=== PATIENT | male | born 1995 ===

== ENCOUNTER 2021-03-18 17:02 | Outpatient (REF) | payer MEDICAID, SELFPAY ==
--- NOTE | ~2021-03-18 | XR_ITS ---
EXAMINATION: XR RIBS, RIGHT CLINICAL INFORMATION: Acute tenderness to palpation at the anterior costal angle over ribs 6 and 7 COMPARISON: None TECHNIQUE: 3 views of the right ribs were obtained. PA view of the chest. FINDINGS: Lungs are clear. No consolidation, pneumothorax, or pleural effusion. The cardiomediastinal silhouette and pulmonary vasculature are normal. Osseous structures are unremarkable. Ribs are intact. No fractures are identified. XR/XR ribs RT min 3V w CXR1V IMPRESSION: Unremarkable examination.
== END 2021-03-18 17:03 | disposition home or self-care (01) ==
LOC: HO.XRAY 17:02
PROVIDERS: Visit Provider Emergency Medicine
DX: M95.4 Acquired deformity of chest and rib (principal)
CPT/HCPCS: 71101

== ENCOUNTER 2021-06-28 08:51 | Outpatient (REF) | payer MEDICAID, SELFPAY | END 2021-06-28 08:52 | disposition home or self-care (01) | LOC: HO.HAP 08:51 | PROVIDERS: PCP Nurse Practitioner Family; Visit Provider Nurse Practitioner Family | DX: Z46.1 Encounter for fitting and adjustment of hearing aid (principal); H90.3 Sensorineural hearing loss, bilateral | CPT/HCPCS: 92592 ==

== ENCOUNTER 2021-11-26 16:03 | Outpatient (REF) | payer SELFPAY | END 2021-11-26 16:04 | disposition home or self-care (01) | LOC: HO.HAP 16:03 | PROVIDERS: Visit Provider Nurse Practitioner Family | DX: Z46.1 Encounter for fitting and adjustment of hearing aid (principal); H90.3 Sensorineural hearing loss, bilateral | CPT/HCPCS: V5266 ==

== ENCOUNTER 2022-03-30 12:06 | Outpatient (REF) | payer MEDICAID, SELFPAY ==
--- NOTE | ~2022-03-30 | XR_ITS ---
EXAMINATION: XR BILATERAL KNEE CLINICAL INFORMATION: Pain. COMPARISON: None TECHNIQUE: 4 views each knee. FINDINGS: RIGHT KNEE: The tricompartment joint space is normal. There is no visible acute fracture or dislocation. No bony erosive changes. No abnormal joint effusion seen. The soft tissues are normal. LEFT KNEE: The tricompartment joint space is normal. No bony erosive changes. No loose bodies. The soft tissues are normal. XR/XR knee RT 4V IMPRESSION: Unremarkable bilateral knee exam.
--- NOTE | ~2022-03-30 | XR_ITS ---
EXAMINATION: XR BILATERAL KNEE CLINICAL INFORMATION: Pain. COMPARISON: None TECHNIQUE: 4 views each knee. FINDINGS: RIGHT KNEE: The tricompartment joint space is normal. There is no visible acute fracture or dislocation. No bony erosive changes. No abnormal joint effusion seen. The soft tissues are normal. LEFT KNEE: The tricompartment joint space is normal. No bony erosive changes. No loose bodies. The soft tissues are normal. XR/XR knee LT 4V IMPRESSION: Unremarkable bilateral knee exam.
== END 2022-03-30 12:07 | disposition home or self-care (01) ==
LOC: HO.XRAY 12:06
PROVIDERS: Absent Provider Registered Nurse; PCP Registered Nurse; Visit Provider Emergency Medicine
DX: M25.561 Pain in right knee (principal); M25.562 Pain in left knee
CPT/HCPCS: 73564

== ENCOUNTER 2022-03-30 12:47 | Outpatient (REF) | payer MEDICAID, SELFPAY | END 2022-03-30 12:48 | disposition home or self-care (01) | LOC: HO.HAP 12:47 | PROVIDERS: Visit Provider Registered Nurse | DX: Z46.1 Encounter for fitting and adjustment of hearing aid (principal); H90.3 Sensorineural hearing loss, bilateral | CPT/HCPCS: V5266 ==

== ENCOUNTER 2022-06-29 08:18 | Outpatient (REF) | payer MEDICAID, SELFPAY ==
--- NOTE | 2022-06-28 15:28 | MHC.AU.FUL ---
Hearing Instrument Follow-Up Date of Visit: 06/28/22 Left Ear: Bench Jeweler: Phonak Cheryl Q Serial number worn off aid and information not in chart Repair Warranty: Type of Mold: Skeleton (ripped in tragus area) Type of Wax Guard: Dispensed By: [facility] Date of Fittin Follow-Up Summary: Patient walked in. He reported the left earhook broke and now the aid is feeding back constantly. Work sent him home because of the constant feedback. The patient had tried to tape the earhook, but still feeding back. Removed all the tape patient had placed on aid at earhook and around the tubing. Able to see a big crack in earhook. Replaced earhook and tubing, cleaned microphones and contacts. Aid is in very bad shape, but amplifying without feedback. Patient is not wearing the right aid (likely a loaner provided 06/28/2021) Recommendations (Other): Advised patient to contact PCP to fax hearing test order to start process for new hearing aids. Diagnosis Code(s):Primary Diagnosis: H90.3 Bilateral Sensorineural Hearing Loss Services Performed:MAHMOOD Maintenance, Minor Repair (Quantity): 2 Signature: Provider: Alexandro Gallagher, [facility]
== END 2022-06-29 08:19 | disposition home or self-care (01) ==
LOC: HO.HAP 08:18
PROVIDERS: Visit Provider Registered Nurse
DX: Z46.1 Encounter for fitting and adjustment of hearing aid (principal); H90.3 Sensorineural hearing loss, bilateral
CPT/HCPCS: 92593; 99499

== ENCOUNTER 2022-10-04 15:03 | Outpatient (REF) | payer MEDICAID, SELFPAY ==
--- NOTE | 2022-10-04 16:37 | MHC.AU.MED ---
Medical Clearance for Hearing Instrumentation Date: 10/04/22 Patient Name: Ancelmo Mathew Date of : 1995 Primary Care Provider: Referring Provider: Ten Collins NP We have seen your patient on 10/04/22 and have determined that they are a candidate for amplification (See accompanying report). Specifically, they would benefit from: Hearing aid use in both ears There is a statute that addresses Medical Evaluation Requirements prior to fitting a patient with a hearing aid. According to [place] statute 265 CMR:6.03(1), (a) General. Except as provided in 265 CMR 6.03(1)(b), a supervisor harvesting shall not sell a hearing aid unless the prospective user has presented to the supervisor harvesting a written statement signed by a licensed physician that states that the patient's hearing loss has been medically evaluated and the patient may be considered a candidate for a hearing aid. The medical evaluation must have taken place within the preceding six months. Please note: Due to the [place] Statute referenced above, we cannot accept a signature other than that of a licensed physician. BALLISTICS TESTER and PA signatures cannot be accepted. I am in agreement with the above recommendation. There is no medical contraindication for hearing instrumentation. Physician Signature Date Physician Name (Printed)
--- NOTE | 2022-10-04 16:59 | MHC.AU.HA1 ---
Hearing Aid Evaluation Date of Visit: 10/04/22 Historical Information: Description of Hearing: Updated audiogram from today reveals a severe to profound sensorineural hearing loss with very poor word recognition ability. See audiogram for report. Discussed cochlear implants, patient may be interested in a CI eval in a few years. Current personal amplification information, if applicable: Phonak Cheryl Q50 UP (black) for the left ear only. Right aid broken. Summary: Patient is here for a hearing aid evaluation for new hearing aids following an updated audiogram. Discussed limited benefit from amplification given poor word recognition ability. Discussed cochlear implants and the patient may be interested in a CI eval in a few years. For now he would like to continue wearing hearing aids. Ear mold impressions taken bilaterally without incident. Medical clearance form faxed to PCP with today's audiogram. Hearing aid and ear mold order pending PA approval once signed medical clearance is obtained. Once we receive the ear molds and hearing aids then the patient will be contacted for scheduling. The patient indicated understanding. Hearing Aid Prescription: Based on the individual?s shared listening needs, communication environments, dexterity, desire for connectivity, and personal preferences, the following prescription for amplification has been made: Right ear: Make, Model, Color: Phonak Cheryl P70 UP, black Battery Size: 675 Type of Earmold/Dome/CShell/SlimTip: Westone Half shell, pressure vent, otoblast disappear B Left ear: Left ear prescription to be same as Right Hearing Aid above: Make, Model, Color: Phonak Cheryl P70 UP, black Battery Size: 675 Type of Earmold/Dome/CShell/SlimTip: Westone Full shell, pressure vent, otoblast disappear B Plan of Care: Patient wishes to purchase hearing aids as prescribed Action Taken/Action Needed: Earmold Impressions Taken Prior authorization to be requested Medical Clearance to be requested from PCP/ENT Primary Diagnosis: H90.3 Bilateral Sensorineural Hearing Loss Signature: Provider: Marilin Davila, [facility]
== END 2022-10-04 15:04 | disposition home or self-care (01) ==
LOC: HO.SH 15:03
PROVIDERS: Visit Provider Registered Nurse
DX: Z01.118 Encounter for examination of ears and hearing with other abnormal findings (principal); Z46.1 Encounter for fitting and adjustment of hearing aid; H90.3 Sensorineural hearing loss, bilateral
CPT/HCPCS: 92557; 92591; V5275

== ENCOUNTER 2022-11-21 08:07 | Outpatient (REF) | payer MEDICAID, SELFPAY ==
--- NOTE | 2022-11-21 10:13 | MHC.AU.HA2 ---
Hearing Instrument Fitting- Adult- Binaural Date of Visit: 11/21/22 Hearing Instruments Dispensed: Right Ear: Make, Model, Color, Serial Number: Lashell Luna P70 UP, black Serial #[id number] Machine Leather Trimmer Repair Warranty: 01/17/2026 Machine Leather Trimmer Loss and Damage Warranty: 01/17/2026 [facility] Service Plan: 11/21/2022 Battery Size: 675 Earmold/Dome/CShell/SlimTip: Westone Half shell, pressure vent, otoblast disappear B Left Ear: Make, Model, Color, Serial Number: Lashell Luna P70 UP, black Serial #[id number] Machine Leather Trimmer Repair Warranty: 01/17/2026 Machine Leather Trimmer Loss and Damage Warranty: 01/17/2026 [facility] Service Plan: 11/21/2022 Battery Size: 675 Earmold/Dome/CShell/SlimTip: Westone Full shell, pressure vent, otoblast disappear B Summary of Fitting: Feedback hvac manager run. Verifit performed and levels adjusted to better reach targets. Patient felt his own voice was not loud enough- increased overall gain by 3 steps and low frequency gain an additional 3 steps. Patient was pleased with the changes. Hearing aid care and maintenance were discussed. Hearing aids were paired to his phone. He was unable to download in the office, as his phone was not getting a good signal, even on the hospital wifi. He will try it again at home. Recommendations: Patient is an experienced hearing aid user. He will call for follow-up as needed. Diagnosis Code(s): Primary Diagnosis: H90.3 Bilateral Sensorineural Hearing Loss Signature: Provider: Alexandro Vazquez, [facility]
== END 2022-11-21 08:08 | disposition home or self-care (01) ==
LOC: HO.HAP 08:07
PROVIDERS: Visit Provider Registered Nurse
DX: Z46.1 Encounter for fitting and adjustment of hearing aid (principal); H90.3 Sensorineural hearing loss, bilateral
CPT/HCPCS: V5011; V5020; V5160; V5261; V5264; V5266

== ENCOUNTER 2023-01-07 12:14 | Emergency (ER) | payer MEDICAID, SELFPAY ==
--- NOTE | ~2023-01-07 | CT_ITS ---
EXAM: CT HEAD WITHOUT CONTRAST CT CERVICAL SPINE INDICATION: Reason for Exam neck pain. Head trauma. TECHNIQUE: A noncontrast CT scan was performed from the skull base to the vertex. A noncontrast CT scan of the cervical spine was performed from the base of the skull through T1 at 2.5 mm and 0.625 mm collimation. Coronal and sagittal reformats were obtained at the acquisition workstation. This CT examination was performed using dose optimization techniques as appropriate, variously including the following: * Automated exposure control * Adjustment of mA and/or kV according to patient size (this includes techniques or standardized protocols for targeted exams where dose is matched to indication/reason for exam; i.e. extremities or head) * Use of iterative reconstruction technique Dose length product is 1460 mGy-cm. COMPARISON: None FINDINGS: Head: There is no evidence of acute intracranial hemorrhage or territorial infarction. No abnormal mass effect or midline shift is seen. Pearce to white matter differentiation is well preserved. No extra-axial fluid collections are identified. The ventricles are normal in size. No abnormal attenuation in the brain parenchyma. No acute calvarial fracture.. Paranasal sinuses and mastoid air cells are well-aerated. Cervical Spine: The atlantooccipital and atlantoaxial articulations remain well aligned. There is anatomic alignment of the vertebral bodies and posterior elements. No evidence of acute fracture or subluxation. The vertebral bodies and posterior elements are normal. The disc spaces are preserved. The bony canal is well maintained.. No prevertebral soft tissue swelling. The paraspinal soft tissues are unremarkable. No suspicious thyroid findings. The visualized lung apices are clear. CT/CT cervical spine wo IV con IMPRESSION: 1. No CT evidence of acute intracranial hemorrhage or edematous territorial infarction.. 2. No CT evidence of acute cervical spine findings.
[2023-01-07 12:23] VITALS: BP 121/65; PULSE 55; RESP 20; TEMP 36.7; O2SAT 99; BMI 29.2
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
--- NOTE | 2023-01-07 13:29 | MHC.EDTECH ---
Head lac cleaned
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
[2023-01-07] MEDS: Diphth,Pertus(ACell),Tet Adult 0.5 ML SYRINGE IM (14:08)
[2023-01-07] MEDS: Acetaminophen 325 MG TABLET 975 MG PO (14:08)
[2023-01-07 15:33] VITALS: BP 127/84; PULSE 60; RESP 18; O2SAT 100
== END 2023-01-07 16:01 | disposition home or self-care (01) ==
PROVIDERS: Emergency Provider Emergency Medicine
DX: S06.0X0A Concussion without loss of consciousness, initial encounter (principal); S01.01XA Laceration without foreign body of scalp, initial encounter; W50.0XXA Accidental hit or strike by another person, initial encounter; Y93.71 Activity, boxing; Y92.39 Other specified sports and athletic area as the place of occurrence of the external cause; Y99.9 Unspecified external cause status
CPT/HCPCS: 12001; 70450; 72125; 90471; 90715; 99284

== ENCOUNTER 2023-06-28 09:48 | Outpatient (REF) | payer MEDICAID, SELFPAY | END 2023-06-28 09:49 | disposition home or self-care (01) | LOC: HO.HAP 09:48 | PROVIDERS: Visit Provider Registered Nurse | DX: Z13.89 Encounter for screening for other disorder (principal) | CPT/HCPCS: 92593; 99499 ==

== ENCOUNTER 2023-11-03 13:43 | Outpatient (REF) | payer SELFPAY | END 2023-11-03 13:44 | disposition home or self-care (01) | LOC: HO.HAP 13:43 | PROVIDERS: Visit Provider Registered Nurse | DX: Z46.1 Encounter for fitting and adjustment of hearing aid (principal); H90.3 Sensorineural hearing loss, bilateral | CPT/HCPCS: V5266 ==

== ENCOUNTER 2024-01-08 11:55 | Outpatient (REF) | payer SELFPAY | END 2024-01-08 11:56 | disposition home or self-care (01) | LOC: HO.HAP 11:55 | PROVIDERS: Visit Provider Nurse Practitioner Family | DX: Z46.1 Encounter for fitting and adjustment of hearing aid (principal); H90.3 Sensorineural hearing loss, bilateral | CPT/HCPCS: V5266 ==

== ENCOUNTER 2024-01-30 15:40 | Emergency (ER) | payer MEDICAID, SELFPAY ==
--- NOTE | 2024-01-30 16:03 | ED.GENADULT ---
HPI - General Adult General Chief complaint: Wound/Laceration Stated complaint: Head injury Time Seen by Provider: 01/30/24 16:12 Source: patient and RN notes reviewed Mode of arrival: ambulatory Limitations: no limitations History of Present Illness ED Provider: Hyacinth Medina PA-C HPI narrative: 28 year old male with no significant pmhx presents to the ED today requesting removal of sutures. Patient was seen at [facility] for mid forehead laceration 1.5 wks ago. He had 5 sutures placed (3 interrupted, 2 horizontal mattress). He was told to have these removed 5 days ago. He presents requesting removal. No complaints/ concerns at present. Denies fever, chills, headache, dizziness, vision changes, discharge or bleeding from the area. Related Data Allergies Allergy/AdvReac Type Severity Reaction Status Date / Time Shrimp (Diagnostic) Allergy Severe Anaphylaxis Uncoded 01/30/24 16:06 Review of Systems Review of Systems: Constitutional: No fever, chills, fatigue, night sweats, weight changes ENT/Mouth: No ear pain, hearing loss, nasal congestion, sinus pain, rhinorrhea, sore throat Eyes: No eye pain, swelling, redness, vision changes, discharge Cardio: No chest pain, palpitations, ALCARAZ, orthopnea, peripheral edema Pulm: No SOB, cough, sputum, wheezing, dyspnea, hemoptysis GI: No nausea, vomiting, hematemesis, abdominal pain, diarrhea, constipation, hematochezia, melena : No irregular bleeding, dysuria, frequency, urgency, hesitancy, hematuria, flank pain, urinary flow changes, urinary incontinence or retention MSK: No back pain, neck pain, joint pain, myalgias Skin: No lesions, rashes Neuro: No weakness, numbness, paresthesias, LOC, dizziness, headache Psych: No anxiety/panic, depression, SI/HI, AH/VH All other systems reviewed and are negative. [facility] Past Medical History Attestation statement: The following information was validated with the patient. Source: old records reviewed and nursing notes reviewed Social History Social History Alcohol intake: never Advance Directives: No Advance Directives Information Provided: No Physical Exam ED Vital Signs: Vital Signs - 24 hr 05/21/24 16:04 Temperature 97.9 F Pulse Rate 66 Respiratory Rate 16 Blood Pressure 95/80 Pulse Oximetry 97 Oxygen Delivery Method Room Air BMI result Body Mass Index 29.2 Vital signs stable Const General: cooperative, healthy appearing, comfortable and no acute distress Orientation/consciousness: patient oriented x3 Limitations: no limitations [facility] Head images: 1. 3 cm healing laceration noted to mid forehead between eyebrows. no active bleeding/ discharge. no overlying erythema or skin changes. Eyes General: appearance normal, both eyes and all related structures Pupils: Equal, round and reactive pupils present Neck Neck: Yes normal visual inspection, Yes full ROM and Yes no lymphadenopathy Resp Effort & Inspection: normal respiratory effort and able to speak in complete sentences Auscultation: clear to auscultation bilaterally Cardio Rate: regular rate Rhythm: regular rhythm Skin General skin exam: no rashes or lesions noted Neuro General: patient oriented x3 and gait normal Cranial nerves: Yes Equal, round and reactive pupils present Course Course Course Narrative: 1614-- 3 interrupted and 2 hosizontal mattress sutures removed successsfully. patient tolerated this well. Patient has remained stable throughout ED visit today. Discussed worrisome signs and symptoms and when to return to the ED. All questions answered at this time. Patient is agreeable with disposition and stable for discharge. Medical Decision Making Medical Decision Making MDM Narrative: 28 year old male with no significant pmhx presents to the ED today requesting removal of sutures. Vital signs stable. Afebrile. He is nontoxic-appearing and in no acute distress. On exam, there is a 3 cm healing laceration noted to mid forehead between eyebrows. no active bleeding/ discharge. no overlying erythema or skin changes. Skin W/D/I. No rashes or lesions. Differential diagnosis includes suture placement. Plan for suture removal. Differential Diagnosis Differential Diagnoses: The differential diagnosis associated with the presentation includes as above. Admission/Observation Consideration of admission/observation: Escalation of care including admission/observation considered Not indicated Prescription Management I considered prescription management with: Pain Medication Social Determinants Patient?s care significantly limited by Social Determinants of Health including: Other Social Determinant of Health Critical Care Time Critical Care Time Critical Care Time: No Discharge Plan Discharge Clinical Impression: Encounter for removal of sutures Patient Disposition: Home, Self-Care Instructions: Stitches Removal (ED) Additional Instructions: 5 sutures were removed from your forehead laceration today. Return if you develop fever, if the area begins to bleed and you cannot control it. Follow up with pcp as needed. Discharge Date/Time: 01/30/24 16:25 Print Language: Anguillan
[2024-01-30 16:04] VITALS: BP 95/80; PULSE 66; RESP 16; TEMP 36.6; O2SAT 97; BMI 29.2
== END 2024-01-30 16:25 | disposition home or self-care (01) ==
PROVIDERS: Emergency Provider Emergency Medicine Emergency Medical Services
DX: Z48.02 Encounter for removal of sutures (principal)
CPT/HCPCS: 99281

== ENCOUNTER 2024-03-25 15:46 | Outpatient (REF) | payer MEDICAID, SELFPAY ==
--- NOTE | 2024-03-26 10:52 | MHC.AU.HA3 ---
Hearing Instrument Follow-Up- Binaural Date of Visit: 03/25/24 Right Ear: Make, Model, Color, Serial Number: Lashell Luna P70 UP SN: [id number] Color: Black Flatwork Feeder Repair Warranty: 01/17/2026 Flatwork Feeder Loss and Damage Warranty: USED [facility] Service Plan: 11/22/2023 Battery Size: 675 Earmold/Dome/CShell/SlimTip:Three prong power dome that Ancelmo purchased from [employer] Dispensed By: [facility] Date of Fittin11/21/2022 Left Ear: Make, Model, Color, Serial Number: Lashell Luna P70 UP SN: [id number] Color: Black Flatwork Feeder Repair Warranty: 01/17/2026 Flatwork Feeder Loss and Damage Warranty: 01/17/2026 [facility] Service Plan: 11/22/2023 Battery Size: 675 Earmold/Dome/CShell/SlimTip: [employer]one Full shell, pressure vent, otoblast disappear B Dispensed By: [facility] Date of Fittin11/21/2022 Follow-Up Summary: Showed up at 15:45 for 14:00 apt. Able to accommodate. Old paper chart could not be located, created new one. Wearing left hearing aid on right ear with three prong power dome from [employer] reporting it sounds weak and junction between tubing and tone hook held together with tape. Tubing hard and discolored. Tone hook continually spinning on hearing aid and rust noted in battery door. Reportedly lost right hearing aid. Unclear where left ear mold is - could not obtain clear response. Hoping to use old right hearing aid in meantime. Cleaned left hearing aid and old right hearing aid. Replaced both tone hooks and tubing. Ran through dehumidifier. Listening check demonstrated hearing aids amplifying clearly. Ancelmo left wearing left hearing aid on left ear with dome from [employer]. Will reorder left ear mold. He recently ordered more domes from [employer] and will put one on tubing of old right hearing aid when they arrive. As previously noted, Ancelmo prefers to use the dome from [employer] in right ear due to cauliflower ear. Signed L&D form for right hearing aid. Recommendations: Patient will be contacted when materials have arrived. Diagnosis Code(s): Primary Diagnosis: H90.3 Bilateral Sensorineural Hearing Loss Signature: Provider: Alexandro Mayfield, [facility]
== END 2024-03-25 15:47 | disposition home or self-care (01) ==
LOC: HO.HAP 15:46
PROVIDERS: Visit Provider Registered Nurse
DX: Z46.1 Encounter for fitting and adjustment of hearing aid (principal); H90.3 Sensorineural hearing loss, bilateral
CPT/HCPCS: 92593; 99499

== ENCOUNTER 2024-03-28 13:04 | Outpatient (REF) | payer MEDICAID, SELFPAY | END 2024-03-28 13:05 | disposition home or self-care (01) | LOC: HO.HAP 13:04 | PROVIDERS: Visit Provider Registered Nurse | DX: Z46.1 Encounter for fitting and adjustment of hearing aid (principal) | CPT/HCPCS: 92592; 99499 ==

== ENCOUNTER 2024-04-19 15:32 | Outpatient (REF) | payer MEDICAID, SELFPAY | END 2024-04-19 15:33 | disposition home or self-care (01) | LOC: HO.HAP 15:32 | PROVIDERS: Visit Provider Registered Nurse | DX: Z46.1 Encounter for fitting and adjustment of hearing aid (principal); H90.3 Sensorineural hearing loss, bilateral | CPT/HCPCS: V5266 ==

== ENCOUNTER 2024-04-26 11:42 | Outpatient (REF) | payer MEDICAID, SELFPAY ==
--- NOTE | 2024-04-26 12:46 | MHC.AU.HA3 ---
Hearing Instrument Follow-Up- Binaural Date of Visit: 04/26/24 Right Ear: Make, Model, Color, Serial Number: Lashell Luna P70 UP SN: [id number] Color: Black Costume Designer Repair Warranty: 01/17/2026 Costume Designer Loss and Damage Warranty: USED [facility] Service Plan: 11/22/2023 Battery Size: 675 Earmold/Dome/CShell/SlimTip:[employer]one Otoblast Half Shell Dispensed By: [facility] Date of Fittin11/21/2022 Left Ear: Make, Model, Color, Serial Number: Lashell Luna P70 UP SN: [id number] Color: Black Costume Designer Repair Warranty: 01/17/2026 Costume Designer Loss and Damage Warranty: 01/17/2026 [facility] Service Plan: 11/22/2023 Battery Size: 675 Earmold/Dome/CShell/SlimTip: Westone Otoblast Full Shell Dispensed By: [facility] Date of Fittin11/21/2022 Follow-Up Summary: Fit right L&D replacement hearing aid and both new ear molds. Ancelmo reported he would prefer to use both ear molds again (versus the three prong power domes that he purchased from [employer]). Comfortable with no feedback in office. Recommendations: Hearing instrument follow-up or maintenance as needed. Please contact our clinic with any questions or concerns. Diagnosis Code(s): Primary Diagnosis: H90.3 Bilateral Sensorineural Hearing Loss Signature: Provider: Alexandro Mayfield, [facility]
== END 2024-04-26 11:43 | disposition home or self-care (01) ==
LOC: HO.HAP 11:42
PROVIDERS: Visit Provider Registered Nurse
DX: Z46.1 Encounter for fitting and adjustment of hearing aid (principal); H90.3 Sensorineural hearing loss, bilateral
CPT/HCPCS: V5264

== ENCOUNTER 2024-06-05 13:50 | Outpatient (AMB) | payer MEDICAID, SELFPAY ==
--- NOTE | 2024-06-05 14:28 | MHC.OFFVIS ---
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 Pt states he was in a grappling match on 05/04/24 and heard a pop in his knee. Pt states right after that he had pain in his knee. Pt states recently is is able to walk easier with less pain than before but states he has pain and difficulty walking up and down stairs. Pt states his ROM is limited and is having difficulty bending his leg. Pt has tried ice which has helped a little. 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 He reports he was in a grappling match when he heard a pop in knee and felt pain, swelling and limping with ambulation. He currently states he has improvement however he continues to have pain, limited ROM, and difficulty bending his knee. His pain is aggravated with going up and down the stairs. He has tried icing his knee with mild relief. [facility] Social History Alcohol intake: never Review of Systems Const All systems reviewed & are unremarkable except as noted in HPI and below Physical Exam Const General: cooperative, healthy appearing, comfortable, no acute distress, well developed and alert Orientation/consciousness: patient oriented x3 HEENT Head: Yes normal to inspection, Yes normocephalic and Yes atraumatic Eyes General: appearance normal, both eyes and all related structures Resp Effort & Inspection: normal respiratory effort and able to speak in complete sentences Cardio Rate: regular rate Peripheral pulses: Peripheral pulses 2+ throughout GI Palpation (GI): Soft to palpation Skin Lesions: no lesions Rashes: no rashes Neuro General: patient oriented x3 Extrem Other: Left knee: Skin intact, no erythema or joint effusion. Medial retropatellar tenderness present. Full ROM with crepitus. Negative Cindi?s. No ligamentous laxity. NVI. ? Results Reviewed Results Reviewed: xrays of the left knee obtained today are negative for acute fracture / dislocations. Assessment & Plan Assessment & Plan (1) Subluxation of left patella: Code(s): S83.002A - Unspecified subluxation of left patella, initial encounter Category: Medical Plan An MRI of the left knee was ordered to further evaluate the source of his pain and surrounding structures. I recommend no high impact activities until f/u in our office. Orders: Orders XR knee LT 3V Today M25.562 - Pain in left knee XR knee RT 1V Today M25.561 - Pain in right knee MR knee LT wo con Today S83.002A - Unspecified subluxation of left patella, initial encounter Patient Instructions: Scribed for Bartolo Mayberry PA-C, by Arnol Rodriguez nurses medical assistants phlebotomists, on 06/05/2024 at 2:00 PM EST.? I, Bartolo Mayberry PA-C, have personally reviewed and agree with the information entered by the scribe. Coding Level of Care Code New Pt Level 3 (92462) Complex EM visit Add On G2211 Diagnoses Subluxation of left patella S83.002A
== END 2024-06-05 15:10 | disposition home or self-care (01) ==
PROVIDERS: Visit Provider Physician Assistant
DX: S83.002A Unspecified subluxation of left patella, initial encounter (principal)
CPT/HCPCS: 99203

== ENCOUNTER 2024-06-05 13:50 | Outpatient (REF) | payer MEDICAID, SELFPAY ==
--- NOTE | ~2024-06-05 | XR_ITS ---
EXAMINATION: XR KNEE, LEFT CLINICAL INFORMATION: M25.562 - Pain in left knee COMPARISON: 03/30/2022. TECHNIQUE: Three views of the left knee. FINDINGS: Normal bony mineralization. No fracture, dislocation, or suspicious bone lesion. Normal alignment. Joint spaces in the medial lateral, and patellofemoral compartment appear preserved. Patella appears normally aligned. No soft tissue abnormalities. XR/XR knee LT 3V IMPRESSION: Normal left knee. Electronically signed by: Wolf Hernandez MD 08/13/2024 10:14 AM CARMEL
--- NOTE | ~2024-06-05 | XR_ITS ---
EXAMINATION: XR KNEE, RIGHT CLINICAL INFORMATION: M25.561 - Pain in right knee COMPARISON: 03/30/2022. TECHNIQUE: AP view of the right knee. FINDINGS: Normal bony mineralization. No fracture, dislocation, or suspicious bone lesion. Normal alignment. Joint spaces in the medial and lateral compartment appear preserved. Patella appears aligned. No soft tissue abnormalities. XR/XR knee RT 1V IMPRESSION: Normal right knee. Electronically signed by: Wolf Hernandez MD 08/13/2024 09:54 AM EST
== END 2024-06-05 13:51 | disposition home or self-care (01) ==
LOC: HO.XRAY 13:50
PROVIDERS: Visit Provider Physician Assistant
DX: M25.562 Pain in left knee (principal); M25.561 Pain in right knee; S83.002A Unspecified subluxation of left patella, initial encounter
CPT/HCPCS: 73560; 73562; 99212

== ENCOUNTER → 2024-06-05 14:03 | Outpatient (BNV) | payer MEDICAID, SELFPAY | PROVIDERS: Visit Provider Radiology Diagnostic Radiology | DX: M25.561 Pain in right knee (principal); M25.562 Pain in left knee | CPT/HCPCS: 73560; 73562 ==

== ENCOUNTER 2024-09-26 13:46 | Outpatient (REF) | payer SELFPAY | END 2024-09-26 13:47 | disposition home or self-care (01) | LOC: HO.HAP 13:46 | PROVIDERS: Visit Provider Registered Nurse | DX: Z46.1 Encounter for fitting and adjustment of hearing aid (principal); H90.3 Sensorineural hearing loss, bilateral | CPT/HCPCS: V5266 ==

== ENCOUNTER 2024-11-19 08:35 | Outpatient (REF) | payer SELFPAY ==
--- OUTSIDE RECORDS SUMMARY | 2024-11-19 09:17 | XMS_ITS | Clinical Summary ---
Author Organization [employer] Address [address] [facility] [address] [place] [address] Care Team Providers Care Flow Worker Name Role Phone Kim Bazzi KEMAR Primary Care Provider [phone] Allergies No known active allergies Medications Diclofenac Sodium 1 % gel Apply 2 g topically every 6 (six) hours. 2 Active fluticasone (Flonase) 50 MCG/ACT nasal spray 8 Active Glycerin-Hyprom ellose-PEG 400 (Artificial Tears) 0.2-0.2-1 % solution Administer 1 drop into affected eye(s) Every 4-6 hours as needed (eye dryness). 15 mL 3 Active ibuprofen 600 MG tabletIndicatio ns:Left knee injury, initial encounter Take 1 tablet (600 mg) by mouth every 6 (six) hours if needed for mild pain or moderate pain. 30 tablet 1 4 Active Active Problems Problem Noted Date Diagnosed Date Upper respiratory infection 04/13/2023 Assessment & Plan (04/13/2023 8:25 PM EDT): Pt w upper respiratory symptoms all improving except for noted today bl eye yellowish discharge Afebrile , VS wnl Exam noted erythema in throat w no exudates and bl eyes conjunctival injection with no current discharge Here w neg flu,covid test Likely viral infection -advised hydration -supportive tx w eye lubricants, tylenol prn -alarm signs and symptoms discussed -covid test sent to hospital for confirmation -advised mask use ,hand hygiene Social History Tobacco Use Types Packs/Day Years Used Date Smoking Tobacco: Never Smokeless Tobacco: Never Sex and Gender Information Value Date Recorded Sex Assigned at Male 07/11/2022 10:14 AM EDT Legal Sex Male 10:14 AM EDT Gender Identity Male 07/11/2022 10:14 AM EDT Sexual Orientation Straight 07/11/2022 10 :14 AM EDT Last Filed Vital Signs Vital Sign Reading Time Taken Comments Blood Pressure 119/71 05/06/2024 9:00 AM EDT Pulse 76 05/06/2024 9:00 AM EDT Temperature 36.6 ??C (97.8 ??F) 05/06/2024 9:00 AM ED T Respiratory Rate 20 05/06/2024 9:00 AM EDT Oxygen Saturation 97% 05/06/2024 9:00 AM EDT Inhaled Oxygen Concentration - - Weight 80.9 kg (178 lb 6.4 oz) 05/06/2024 9:00 A M EDT Height 167.6 cm (5' 6 ) 05/06/2024 9:00 AM EDT Body Mass Index 28.79 05/06/2024 9:00 AM EDT Plan of Treatment Health Maintenance Due Date Last Done Comments Depression Screening 1994 HIV Screening 1994 SDOH Screening 1994 Alcohol/Substance Use Screening 2006 Family Planning (PISQ) 2009 HPV Vaccines (2 - Male 3-dose series) 03/23/2011 02/23/2011 Hepatitis C Screening 2012 COVID-19 Vaccine ( - 2023- season) 2024 Influenza Vaccine (#1) 2024 Tobacco Screening 05/06/2025 05/06/2024 DTaP/Tdap/Td Vaccines (10 - Td or Tdap) 01/19/2034 01/20/2024, 01/07/2023, 02/21/2019, Additional history exists Zoster Vaccines (1 of 2) 2044 RSV Patients and Patients Aged 60 years or older (1 - 1-dose 75+ series) 2069 Hepatitis B Vaccines Completed 09/11/1995, 05/12/1995, 04/11/1995 HIB Vaccines Completed 07/12/1996, 09/1995, 05/12/1995, Additional history exists IPV Vaccines Completed 01/03/2000, 09/1995, 09/11/1995, Additional history exists Meningococcal Vaccine Aged Out 10/09/2006 No alicja beverly eligible based on patient's age to complete this topic Hepatitis A Vaccines Completed 06/05/2008, 10/09/19 07 Pneumococcal Vaccine: Pediatrics (0 to 5 Years) and At-Risk Patients (6 to 49) Years) Aged Out No longer eligible based on patient's age to complete this topic RSV under 20 months Aged Out No longe r eligible based on patient's age to complete this topic Rotavirus Vaccines Aged Out No longer eligible based on patient's age to complete this topic [facility] [facility] C[facility] Care Teams Flow Worker Relationship Specialty Start Date End Date Kim Bazzi NP [address] [place] [phone] PCP - General Family Medicine 10/20/23
--- NOTE | 2024-11-19 12:49 | MHC.AU.HA3 ---
Hearing Instrument Follow-Up- Binaural Date of Visit: 11/19/24 Right Ear: Roman, Model, Color, Serial Number: Lashell Luna P70 UP SN: [id number] Color: Black Health Information Assistant Repair Warranty: 01/17/2026 Health Information Assistant Loss and Damage Warranty: USED [facility] Service Plan: 11/22/2023 Battery Size: 675 Bacon Skin Lifter/Slim Tube: Earmold/Dome/CShell/SlimTip:[employer] Otoblast Half Shell Type of Wax Guard: Dispensed By: [facility] Date of Fittin11/21/2022 Left Ear: Roman, Model, Color, Serial Number: Lashell Luna P70 UP SN: [id number] Color: Black Health Information Assistant Repair Warranty: 01/17/2026 Health Information Assistant Loss and Damage Warranty: 01/17/2026 [facility] Service Plan: 11/22/2023 Battery Size: 675 Bacon Skin Lifter/Slim Tube: Earmold/Dome/CShell/SlimTip: [employer]one Otoblast Full Shell Type of Wax Guard: Dispensed By: [facility] Date of Fittin11/21/2022 Follow-Up Summary: Aids dropped off. Tubes hard and split, left tone hook taped to hearing aid. Cleaned aids and earmolds, replaced tone hooks, replaced tubing. Significant brown/red dust accumulated in battery compartments, cleaned as well as possible. Listening check positive. Recommendations: Recommendations: Hearing instrument follow-up or maintenance as needed. Diagnosis Code(s): Primary Diagnosis: H90.3 Bilateral Sensorineural Hearing LossSecondary Diagnosis: Signature: Provider: Alexandro White, [facility]
== END 2024-11-19 08:36 | disposition home or self-care (01) ==
LOC: HO.HAP 08:35
PROVIDERS: Visit Provider Registered Nurse
DX: Z46.1 Encounter for fitting and adjustment of hearing aid (principal); H90.3 Sensorineural hearing loss, bilateral
CPT/HCPCS: 92593

== ENCOUNTER 2024-12-10 15:27 | Outpatient (REF) | payer SELFPAY | END 2024-12-10 15:28 | disposition home or self-care (01) | LOC: HO.HAP 15:27 | PROVIDERS: Visit Provider Registered Nurse | DX: Z46.1 Encounter for fitting and adjustment of hearing aid (principal); H90.3 Sensorineural hearing loss, bilateral | CPT/HCPCS: V5266 ==

== ENCOUNTER 2025-01-22 09:24 | Outpatient (REF) | payer SELFPAY ==
--- OUTSIDE RECORDS SUMMARY | 2025-01-22 09:56 | XMS_ITS | Clinical Summary ---
Author Organization [employer] Address [address] [facility] [address] [place] [address] Care Team Providers Care Milling Supervisor Name Role Phone Kim Bazzi KEMAR Primary Care Provider Allergies No known active allergies Medications Diclofenac [...] patient's age to complete this topic [facility] Care Teams Milling Supervisor Relationship Specialty Start Date End Date Kim Bazzi NP [address] [place] [phone] PCP - General Family Medicine 10/20/23
== END 2025-01-22 09:25 | disposition home or self-care (01) ==
LOC: HO.SH 09:24
DX: Z01.118 Encounter for examination of ears and hearing with other abnormal findings (principal); Z46.1 Encounter for fitting and adjustment of hearing aid; H90.3 Sensorineural hearing loss, bilateral
CPT/HCPCS: V5266

== ENCOUNTER 2025-03-28 12:52 | Outpatient (REF) | payer SELFPAY ==
--- OUTSIDE RECORDS SUMMARY | 2025-03-28 12:55 | XMS_ITS | Clinical Summary ---
Author Organization [employer] Address [address] [place] [address] [address] [place] [address] Care Team Providers Care Throw Out Clerk Name Role Phone Kim Bazzi KEMAR Primary Care Provider [phone] Allergies No known active allergies Medications Diclofenac [...] 76 05/06/2024 9:00 AM EDT Temperature 36.6 C (97.8 F) 05/06/2024 9:00 AM EDT Respiratory Rate 20 05/06/2024 9:00 AM EDT [...] 1994 HIV Screening 1994 SDOH Screening 1994 Disability Screening 1994 Alcohol/Substance Use Screening 2006 Family Planning (PISQ) 2009 HPV Vaccines (2 - Male 3-dose series) 03/23/2011 02/23/2011 Hepatitis C Screening 2012 COVID-19 Vaccine ( - season) 2024 Tobacco Screening 05/06/2025 05/06/2024 Influenza Vaccine (#1) 2025 DTaP/Tdap/Td Vaccines (10 - Td or Tdap) [...] Hepatitis A Vaccines Completed 06/05/2008, 10/09/19 07 Meningococcal B Vaccine Aged Out No l onger eligible based on patient's age to complete this topic Pneumococcal Vaccine: Pediatrics (0 to 5 Years) and At-Risk Patients (6 to 49) Years Aged Out No longer eligible based on patient's age to complete this topic RSV under 20 months Aged Out No longe r eligible based on patient's age to complete this topic Rotavirus Vaccines Aged Out No longer eligible based on patient's age to complete this topic Insurance [facility] C3 Care Teams Throw Out Clerk Relationship Specialty Start Date End Date Kim Bazzi NP [address] [place] [phone] PCP - General Family Medicine 10/20/23
== END 2025-03-28 12:53 | disposition home or self-care (01) ==
LOC: HO.HAP 12:52
PROVIDERS: Visit Provider Registered Nurse
DX: Z46.1 Encounter for fitting and adjustment of hearing aid (principal); H90.3 Sensorineural hearing loss, bilateral
CPT/HCPCS: V5266

== ENCOUNTER 2025-06-17 12:37 | Outpatient (REF) | payer SELFPAY ==
--- OUTSIDE RECORDS SUMMARY | 2025-06-17 15:30 | XMS_ITS | Clinical Summary ---
Author Organization [employer] Address [address] [place] [address] [address] [place] [address] Care Team Providers Care Supervisor Curing Room Name Role Phone Kim Bazzi KEMAR Primary Care Provider [phone] Allergies No known active allergies Medications Diclofenac [...] series) 03/23/2011 02/23/2011 Hepatitis C Screening 2012 Tobacco Screening 05/06/2025 05/06/2024 COVID-19 Vaccine ( - season) 2025 Influenza Vaccine (#1) 2025 DTaP/Tdap/Td Vaccines (10 [...] patient's age to complete this topic Insurance [facility] C3 Care Teams Supervisor Curing Room Relationship Specialty Start Date End Date Kim Bazzi NP [address] [place] [phone] PCP - General Family Medicine 10/20/23
== END 2025-06-17 12:38 | disposition home or self-care (01) ==
LOC: HO.HAP 12:37
PROVIDERS: Visit Provider Registered Nurse
DX: Z13.89 Encounter for screening for other disorder (principal)

== ENCOUNTER 2025-06-30 16:01 | Outpatient (REF) | payer SELFPAY ==
--- OUTSIDE RECORDS SUMMARY | 2025-06-30 20:19 | XMS_ITS | Clinical Summary ---
Author Organization [employer] Address [address] [place] [address] [address] [place] [address] Care Team Providers Care Sciences Dean Name Role Phone Kim Bazzi KEMAR Primary [...] patient's age to complete this topic Insurance [facility] C3 Care Teams Sciences Dean Relationship Specialty Start Date End Date Kim Bazzi NP [address] [place] [phone] PCP - General Family Medicine 10/20/23
== END 2025-06-30 16:02 | disposition home or self-care (01) ==
LOC: HO.HAP 16:01
PROVIDERS: Visit Provider Internal Medicine Geriatric Medicine
DX: Z13.89 Encounter for screening for other disorder (principal)

== ENCOUNTER 2025-07-23 15:10 | Outpatient (REF) | payer SELFPAY ==
--- OUTSIDE RECORDS SUMMARY | 2025-07-23 18:27 | XMS_ITS | Clinical Summary ---
Author Organization [employer] Address [address] [place] [address] [address] [place] [address] Care Team Providers Care Financial Services Agent Name Role Phone Kim Bazzi KEMAR Primary Care Provider [phone] Allergies No known active allergies Medications Diclofenac [...] patient's age to complete this topic Insurance [facility] C3 Care Teams Financial Services Agent Relationship Specialty Start Date End Date Kim Bazzi NP [address] [place] [phone] PCP - General Family Medicine 10/20/23
== END 2025-07-23 15:11 | disposition home or self-care (01) ==
LOC: HO.HAP 15:10
DX: Z46.1 Encounter for fitting and adjustment of hearing aid (principal); H90.3 Sensorineural hearing loss, bilateral
CPT/HCPCS: V5266